=== PATIENT | male | born 1945 | race Caucasian/White ===

== ENCOUNTER 2022-03-10 15:07 | Outpatient (CLI) | payer MEDICARE, SELFPAY ==
--- NOTE | ~2022-03-10 | US_ITS ---
EXAMINATION: US carotid duplex BI EXAM DATE: 03/10/2022 15:48 INDICATION: R42 - Dizziness and giddiness TECHNIQUE: Grayscale, color and pulsed Doppler images of the cervical carotid arteries were obtained . The degree of vessel stenosis is placed in one of the following categories: normal, <50% stenosis, 50-69% stenosis, >=70% stenosis but less than near-occlusion, near-occlusion, or occlusion. Note that percent stenosis relative to normal distal artery lumen diameter is indirectly measured from velocit y measurements as described by Donny, et al. Radiology 2003; 229:340-346. There is no prior study fo r comparison. FINDINGS: RIGHT SIDE: Right common carotid artery peak systolic velocity (PSV in cm/s): 150 Right bulb/internal carotid artery peak systolic velocity (PSV in cm/s): 83 Right internal carotid artery end diastolic velocity (EDV in cm/s): 28 Right ICA/CCA peak systolic ratio: 0.55 Right external carotid artery peak systolic velocity (PSV in cm/s): 83 Right vertebral artery antegrade flow: yes There is mild carotid bulb plaque. Velocity and Doppler waveforms in the common and internal carotid arteries is normal. LEFT SIDE: Left common carotid artery peak systolic velocity (PSV in cm/s): 159 Left bulb/internal carotid artery peak systolic velocity (PSV in cm/s): 67 Left internal carotid artery end diastolic velocity (EDV in cm/s): 22 Left ICA/CCA peak systolic ratio: 0.4 Left external carotid artery peak systolic velocity (PSV in cm/s): 91 Left vertebral artery antegrade flow: yes There is mild carotid bulb plaque. Velocity and Doppler waveforms in the common and internal carotid arteries is normal. IMPRESSION: 1. Less than 50 percent stenosis in the right internal carotid artery. 2. Less than 50 percent stenosis in the left internal carotid artery. Reviewed, dictated and finalized at location B.
== END 2022-03-10 15:08 | disposition home or self-care (01) ==
LOC: ANHIMG 15:08
PROVIDERS: PCP Family Medicine; Visit Provider Physician Assistant
DX: I65.23 Occlusion and stenosis of bilateral carotid arteries (principal)
CPT/HCPCS: 93880

== ENCOUNTER → 2022-04-07 06:57 | Outpatient (CLI) | payer MEDICARE, SELFPAY ==
--- NOTE | ~2022-04-07 | MR_ITS ---
EXAMINATION: MR brain/brain stem wo con DATE: 04/07/2022 07:47 INDICATION: Amnesia. TECHNIQUE: Magnetic resonance imaging (MRI) of the brain and brainstem was performed without intraven ous contrast. Sequences included sagittal and axial T1-weighted SE, axial diffusion-weighted FS SE, a xial T2*-weighted GRE, axial T2-weighted FLAIR Propeller, and axial T2-weighted Propeller. Apparent d iffusion coefficient (ADC) maps were created. COMPARISON: No prior studies for comparison. . FINDINGS: There are small mucous retention cyst in both maxillary sinuses. Generalized atrophy. There are scattered moderate-severe periventricular and subcortical white matter changes, most likely rela dominic to small vessel ischemic disease (microangiopathy). No acute infarction or hemorrhage is identifi ed. No ventriculomegaly or midline shift. Orbits are symmetric without disconjugate gaze. Structures of the posterior fossa are unremarkable. Midline sagittal images demonstrate a normal craniovertebral junction. Corpus callosum intact. IMPRESSION: 1. No acute intracranial abnormality. 2: Chronic age-related findings. Reviewed, dictated and finalized at location A.
== END ==
PROVIDERS: PCP Family Medicine; Visit Provider Family Medicine
DX: R41.3 Other amnesia (principal); G20 Parkinson's disease
CPT/HCPCS: 70551

== ENCOUNTER 2023-08-23 15:47 | Inpatient (IN) | payer MEDICARE, SELFPAY ==
[2023-08-23] VITALS (23 sets, daily range): BP systolic 146–172; BP diastolic 79–97; PULSE 99–111; RESP 14–24; TEMP 37.1; O2SAT 93–99
--- NOTE | ~2023-08-23 | CT_ITS ---
EXAMINATION: CT brain wo con DATE: 08/23/2023 20:21 INDICATION: new ams, covid, hx vasc dementia . TECHNIQUE: Computed tomography (CT) of the head was performed without intravenous contrast. The mA wa s adjusted according to patient size. Iterative reconstruction technique was employed. The dose-lengt h product was 908.00 mGy-cm. COMPARISON: MRI brain 04/07/2022. FINDINGS: Motion limited study. Repeat images attempted which also contain motion. Motion limited slices at the vertex were not really imaged. No acute intracranial hemorrhage or extra-axial fluid collection. No hydrocephalus, mass, or herniation. No acute ischemic infarct. Unremarkable dural venous sinus attenuation. No acute osseous abnormality. Bilateral maxillary and ethmoid mucosal thickening, left mastoid fluid, the remaining aerated spaces are clear. Moderate atrophy and chronic white matter change. Atherosclerotic intracranial calcification. Bilater al lens replacements. IMPRESSION: Motion limited examination. Within that constraint no definite acute intracranial process detected. Reviewed, dictated and finalized at location K. IMPRESSION: Motion limited examination. Within that constraint no definite acute intracrani al process detected.
--- NOTE | ~2023-08-23 | MR_ITS ---
EXAMINATION: MR brain/brain stem wo con DATE: 08/24/2023 17:00 INDICATION: Confusion TECHNIQUE: Magnetic resonance imaging (MRI) of the brain and brainstem was performed without intraven ous contrast. Sequences included sagittal and axial T1-weighted SE, axial diffusion-weighted FS SE, a xial T2*-weighted GRE, axial T2-weighted FLAIR, and axial T2-weighted FSE. Postcontrast axial and cor onal T1-weighted SE was obtained. Apparent diffusion coefficient (ADC) maps were created. COMPARISON: None. FINDINGS: There are no areas of restricted diffusion to suggest acute infarction. No intracranial hemorrhage or abnormal intracranial mass lesion. There are scattered areas of nonspecific increased T2-weighted si gnal intensity in the cerebral white matter, predominantly involving the deep and periventricular whi te matter which is within normal limits for age and likely sequela of chronic small vessel ischemic d isease. There are no intraparenchymal signal abnormalities seen on the other pulse sequences. Symmetr ic prominence of the sulci and ventricles consistent with moderate age-appropriate diffuse cerebral v olume loss. There are no abnormal extra-axial fluid collections. Flow voids are seen in the cerebral arteries on the T2-weighted sequences consistent with their expected patency. Mucosal thickening in t he paranasal sinuses. Changes of bilateral intraocular lens replacement. Visualized orbits and soft tissues are unremarkable. IMPRESSION: 1. No acute intracranial process. 2. Moderate diffuse volume loss and moderate scattered white matter T2 hyperintensity which is within normal limits for age and likely sequela of chronic small vessel ischemic disease. Reviewed, dictated and finalized at location A. IMPRESSION: 1. No acute intracranial process. 2. Moderate diffuse volume loss and moderate scattered white matter T2 hyperint ensity which is within normal limits for age and likely sequela of chronic smal l vessel ischemic disease.
--- NOTE | ~2023-08-23 | XR_ITS ---
EXAMINATION: XR chest 2V Exam Date/Time: 08/23/2023 16:55 CDT HISTORY: cough WITH SHORTNESS OF BREATH X 1 DAY Comparison: 02/14/2018. RESULT: Lines, tubes, and devices: None. Lungs and pleura: Ill-defined patchy bilateral mid and lower lung groundglass opacities. Cardiomediastinal silhouette: Stable. Other: No acute osseous or upper abdominal finding. IMPRESSION: Bilateral mid and lower lung opacities may represent edema or infection. Reviewed, dictated and finalized at location K.
--- NOTE | 2023-08-23 16:33 | ECG_ITS ---
Measurements Intervals [place] Rate: 99 P: 56 PA: 234 QRS: -43 QRSD: 99 T: 33 QT: 337 QTc: 433 Interpretive Statements SINUS RHYTHM WITH FIRST DEGREE AV BLOCK LEFT AXIS DEVIATION PATTERN CONSISTENT WITH PULMONARY DISEASE BORDERLINE ECG NO PREVIOUS ECG AVAILABLE FOR COMPARISON Electronically Signed On 08-23-2023 18:50:37 CDT by Jim Solorzano D.O.
[2023-08-23 16:49] LABS: Basophils Percent Auto 0.4 % (0.2-1.2); Eosinophils Percent Auto 0.4 % (0-4.4); Hematocrit 45.2 % (42.0-52.0); Hemoglobin 15.4 g/dL (14.0-18.0); Immature Granulocyte Absolute 0.03 K/mm3 (0.00-0.031); Immature Granulocyte Percent A 0.6 % (0-0.5); Lymphocytes Absolute Auto 0.56 K/mm3 (0.9-3.2); Lymphocytes Percent Auto 10.5 % (18.3-44.2); Mean Corpuscular HGB Conc 34.1 g/dl (32-36); Mean Corpuscular Hemoglobin 30.2 pg (26-34); Mean Corpuscular Volume 88.6 fl (80-100); Mean Platelet Volume 10.2 fl (7.4-10.4); Monocytes Absolute Auto 0.8 K/mm3 (0.1-0.6); Monocytes Percent Auto 15.3 % (2.6-8.5); Neutrophils Absolute Auto 3.9 K/mm3 (1.3-6.7); Neutrophils Percent Auto 72.8 % (45.5-73.1); Platelet Count Result 165 k/mm3 (150-375); Red Cell Distribution Width 12.6 % (11.5-14.5); White Blood Count 5.3 K/mm3 (4.5-10.0)
[2023-08-23 17:01] LABS: Alanine Aminotransferase 20 U/L (6-50); Albumin Level 4.4 g/dL (3.5-5.1); Alkaline Phosphatase 80 U/L (38-126); Anion Gap 10 mmol/L (8-16); Aspartate Amino Transferase 23 U/L (17-59); Bilirubin,Total 1.3 mg/dL (0.2-1.3); Blood Urea Nitrogen 16 mg/dL (9-20); Carbon Dioxide 26 mmol/L (22-30); Chloride 100 mmol/L (98-107); Estimated CRCL calculation 95 ml/min; Estimated Glomerular Filt Rate > 60; Glucose 122 mg/dL (65-110); Potassium 3.3 mmol/L (3.4-5.0); Sodium 136 mmol/L (137-145)
[2023-08-23 17:37] LABS: Influenza A QL RT-PCR Negative (Negative); Influenza B QL RT-PCR Negative (Negative); SARS-CoV-2 RNA PCR Positive (Negative)
[2023-08-23 18:54] LABS: Appearance Urine Clear (Clear); Bacteria Urine None Seen /hpf; Bilirubin Urine Negative (Negative); Blood Urine 2+ (Negative); Color Urine Yellow (Yellow); Glucose Urine UA Negative (Negative); Ketones Urine 2+ mg/dL (Negative); Leukocyte Esterase Ur Negative LEU/UL (Negative); Nitrate Urine Negative (Negative); Non Pathogenic Casts 0-2; Protein Urine Trace mg/dL (Negative); RBC Urine 21-50 /hpf (0-2); Specific Grav Ur 1.026 (1.001-1.035); Squamous Epithelial Cell Urine None seen /hpf (Few); WBC Urine 0-5 /hpf; pH Urine 5.5 (5.0-9.0)
[2023-08-23 18:55] LABS: Add Urine Microscopic? YES
--- NOTE | 2023-08-23 19:53 | ED.WEAKNESS ---
HPI - Weakness General Chief complaint: Weakness Stated complaint: covid? Time Seen by Provider: 08/23/23 17:30 Source: patient and family Mode of arrival: EMS Limitations: clinical condition and dementia History of Present Illness HPI Narrative: Patient is a 77-year-old male, with PMH of vascular dementia, who presents to the ED with report of weakness. Patient reports he is unsure why he is currently at the hospital. He denies feeling weak or fatigued currently. He denies any pain. Denies chest pain, difficulty breathing, nausea or vomiting, cough or cold symptoms. He notes he recently traveled with his family, but is unsure where. Has no other complaints at this time. I spoke to patient's and daughter in the ED waiting room. They report patient has been increasingly confused. He does have history of vascular dementia, but states he is normally able to hold a conversation and is aware of his surroundings and recent events. They state upon traveling back from [place] yesterday, patient became very weak. They state he required a wheelchair to get him through the airport which is abnormal for him. Today, patient went to run an errand but patient became increasingly confused while driving home, was unable to park correctly into the garage, and sat for prolonged period in the set key driver seat without knowing why. They attempted to help him out of the car, but were unable to due to him being so weak. He was unable to stand unassisted. EMS was then called. Related Data Home Medications Medication Instructions Recorded Confirmed coenzyme [id number] E 100 mg-100 1 cap PO .QD 05/03/20 08/24/23 unit capsule omega-3 fatty acids 1,000 mg 1,000 mg PO DAILY 05/03/20 08/24/23 capsule (Fish Oil Concentrate) hydrochlorothiazide 25 mg tablet 25 mg PO DAILY 08/24/23 08/24/23 lisinopril 40 mg tablet 40 mg PO DAILY 08/24/23 08/24/23 omeprazole 20 mg capsule,delayed 20 mg PO DAILY 08/24/23 08/24/23 release Allergies Allergy/AdvReac Type Severity Reaction Status Date / Time No Known Allergies Allergy Verified 08/23/23 15:56 Review of Systems Review of Systems: ROS unobtainable: Yes unobtainable due to mental status PMFSH Past Medical History Medical History (Updated 08/24/23 @ 01:55 by Maris Prescott PA-C) Essential (primary) hypertension Gastro-esophageal reflux disease without esophagitis Mixed hyperlipidemia Type 2 diabetes mellitus without complications Vascular dementia Family History Family History Mother Diabetes mellitus Father Family history of cardiovascular disease, Onset Age: 57 FH myocardial infarction male first degree age known, Onset Age: 57 Social History Social History Smoking status: Former smoker Alcohol intake: current Drinks per week: 10 Substance use: never Lack of Transportation: No Lack of Food: Never True Current Housing: I Have Housing Concerned About Future Housing: No Difficulty Paying Gas/Electric Bills: No Difficulty Paying for Meds: No Currently Unemployed: No Education: Associate Degree Difficulty w/ Childcare or Family Care: No Spiritual care concerns: No Exam Narrative: GENERAL: Elderly, well-nourished, non-toxic, in no acute distress. HEAD: Normocephalic, atraumatic. NECK: Supple. No adenopathy, no masses. RESPIRATORY: Airway patent, respirations nonlabored. Very faint crackles in bases bilaterally, no significant focal lung sounds. CARDIOVASCULAR: Borderline tachycardic with regular rhythm without murmurs, rubs, or gallops. Peripheral pulses 2+ and equal bilaterally. ABDOMINAL: Soft, nontender, nondistended, no hepatosplenomegaly. Normoactive BS. MUSCULOSKELETAL: Moves all extremities. Strength/ROM intact without gross deformities. SKIN: Warm, dry, normal color. No rashes. NEURO: A&O X2, unsure of year, tho
[2023-08-23 20:26] LABS: Lactic Acid Reflex 1.6 mmol/L (0.7-2.0)
[2023-08-23 20:29] LABS: CRP 3.5 mg/dL (<1.0)
[2023-08-23] MEDS: POTASSIUM CHLORIDE 20 MEQ ER TABLET 40 MEQ PO (20:29)
[2023-08-23] MEDS: SODIUM CHLORIDE 0.9% IV 1,000 ML 999 ML IV CONT (20:29)
[2023-08-23 20:39] LABS: NT Pro B Type Natriuretic Pept 411 pg/mL (19.9-100); Troponin I < 0.012 ng/mL (0.000-0.034)
[2023-08-23 21:04] LABS: Procalcitonin 0.1 ng/mL
[2023-08-23 23:13] LABS: D Dimer 0.33 ug/mL (<0.48)
[2023-08-24] VITALS (14 sets, daily range): BP systolic 152–168; BP diastolic 87–97; PULSE 88–100; RESP 16–18; TEMP 36.4–38.4; O2SAT 95–98
--- NOTE | 2023-08-24 00:14 | ADMGEN ---
This patient, Ritesh Culver, was admitted to Medical Room 255-. Patient/family oriented to hospital policies and general routines including ID bracelet, bed and alarms, visiting hours, pain management, procedures, bathroom and other care routines, personal items, smoking policy, room service/diet, and visiting hours. Information on how to activate the Rapid Response Team has been discussed. Patient/Family are encouraged to report perceived risks to care and to ask questions if they do not understand what they are told or what they should do.
[2023-08-24] MEDS: SODIUM CHLORIDE 0.9% IV 1,000 ML 100 ML IV CONT ×2 (00:19→11:44)
[2023-08-24 06:20] LABS: Hematocrit 44.1 % (42.0-52.0); Hemoglobin 15.2 g/dL (14.0-18.0); Mean Corpuscular HGB Conc 34.5 g/dl (32-36); Mean Corpuscular Hemoglobin 30.6 pg (26-34); Mean Corpuscular Volume 88.7 fl (80-100); Mean Platelet Volume 9.5 fl (7.4-10.4); Platelet Count Result 141 k/mm3 (150-375); Red Blood Count 4.97 M/mm3 (4.6-6.20); Red Cell Distribution Width 12.3 % (11.5-14.5); White Blood Count 3.9 K/mm3 (4.5-10.0)
[2023-08-24 06:40] LABS: Anion Gap 9 mmol/L (8-16); Blood Urea Nitrogen 11 mg/dL (9-20); Calcium 8.3 mg/dL (8.4-10.2); Carbon Dioxide 26 mmol/L (22-30); Chloride 100 mmol/L (98-107); Estimated CRCL calculation 109 ml/min; Estimated Glomerular Filt Rate > 60; Glucose 114 mg/dL (65-110); Potassium 3.3 mmol/L (3.4-5.0); Sodium 135 mmol/L (137-145)
[2023-08-24 08:08] LABS: Glucose Point of Care 120 mg/dl (65-105)
[2023-08-24] MEDS: lisinopriL 20 MG TABLET 40 MG PO (08:41)
[2023-08-24] MEDS: OMEGA 3 POLYUNSAT FATTY ACIDS 1 GM CAP PO (08:42)
[2023-08-24] MEDS: PANTOPRAZOLE 40 MG TABLET PO (08:43)
[2023-08-24] MEDS: ROSUVASTATIN 10 MG TABLET PO (08:43)
[2023-08-24 12:08] LABS: Glucose Point of Care 117 mg/dl (65-105)
--- NOTE | 2023-08-24 15:27 | PM.IMHP ---
H&P: HPI History of Present Illness Date/Time: 08/24/23 15:27 Chief Complaint: Altered mental status Narrative: This is a 6-year-old male with past medical history of vascular dementia presented with weakness. Patient is confused and naked on his bed. He denies any new complaints no shortness of breath chest pain nausea vomiting cough. He recently traveled this family for medical record the has been reported to be increasingly confused will recently. Needed a wheelchair to get him through the airport which is not normal for him. Patient went to run an errand but became increasingly confused while driving home. EMS was then called. He has past medical history of hypertension GERD hyperlipidemia type 2 diabetes and vascular dementia. Is admitted in the setting for further evaluation Review of Systems Review of Systems: ROS unobtainable: Yes unobtainable due to medical condition (Confused) [facility] Past Medical History Medical History (Updated 08/24/23 @ 01:55 by Maris Prescott PA-C) Essential (primary) hypertension Gastro-esophageal reflux disease without esophagitis Mixed hyperlipidemia Type 2 diabetes mellitus without complications Vascular dementia Family History Family History Mother Diabetes mellitus Father Family history of cardiovascular disease, Onset Age: 57 FH myocardial infarction male first degree age known, Onset Age: 57 Social History Social History Smoking status: Former smoker Alcohol intake: current Drinks per week: 10 Substance use: never Lack of Transportation: No Lack of Food: Never True Current Housing: I Have Housing Concerned About Future Housing: No Difficulty Paying Gas/Electric Bills: No Difficulty Paying for Meds: No Currently Unemployed: No Education: Associate Degree Difficulty w/ Childcare or Family Care: No Spiritual care concerns: No Meds Home Medications and Allergies Home Medications Medication Instructions Recorded Confirmed Type coenzyme [id number]-xoppixc E 100 mg-100 1 cap PO .QD 05/03/20 08/24/23 History unit capsule omega-3 fatty acids 1,000 mg 1,000 mg PO DAILY 05/03/20 08/24/23 History capsule (Fish Oil Concentrate) rosuvastatin 10 mg tablet (Crestor) 10 mg PO DAILY #90 tabs 06/25/23 08/24/23 Rx hydrochlorothiazide 25 mg tablet 25 mg PO DAILY 08/24/23 08/24/23 History lisinopril 40 mg tablet 40 mg PO DAILY 08/24/23 08/24/23 History omeprazole 20 mg capsule,delayed 20 mg PO DAILY 08/24/23 08/24/23 History release Allergies Allergy/AdvReac Type Severity Reaction Status Date / Time No Known Allergies Allergy Verified 08/23/23 15:56 Vital Signs Vital Signs - 24 hr 08/23/23 15:46 08/23/23 15:57 08/23/23 16:13 Temperature 98.7 F Pulse Rate 105 H 103 H 101 H Respiratory Rate 22 H 22 H Blood Pressure 166/95 H Pulse Oximetry 95 96 Oxygen Delivery Room Air 08/23/23 16:15 08/23/23 16:16 08/23/23 16:31 Temperature Pulse Rate 100 101 H 111 H Respiratory Rate 22 H 24 H 19 Blood Pressure 164/89 H 164/89 H Pulse Oximetry 96 96 96 Oxygen Delivery 08/23/23 16:47 08/23/23 17:04 08/23/23 17:15 Temperature Pulse Rate 100 100 101 H Respiratory Rate 21 H 14 20 Blood Pressure Pulse Oximetry 96 95 95 Oxygen Delivery 08/23/23 17:32 08/23/23 18:08 08/23/23 17:29 Temperature Pulse Rate 100 99 Respiratory Rate 20 20 Blood Pressure 165/97 H 163/92 H Pulse Oximetry 97 95 99 Oxygen Delivery Room Air 08/23/23 17:30 08/23/23 17:31 08/23/23 17:45 Temperature Pulse Rate 99 100 101 H Respiratory Rate 20 22 H 18 Blood Pressure 165/97 H Pulse Oximetry 95 97 96 Oxygen Delivery 08/23/23 17:46 08/23/23 18:04 08/23/23 19:04 Temperature Pulse Rate 100 100 104 H Respiratory Rate 20 22 H 20 Blood Pressure 165/97 H 159/88 H Pulse Oximetry 95 95
[2023-08-24 17:23] LABS: Glucose Point of Care 122 mg/dl (65-105)
[2023-08-24] MEDS: POTASSIUM CHLORIDE 20 MEQ ER TABLET 40 MEQ PO (17:27)
[2023-08-24] MEDS: ACETAMINOPHEN 325 MG TABLET 650 MG PO (21:32)
[2023-08-24] MEDS: SODIUM CHLORIDE 0.9% IV 1,000 ML 75 ML IV CONT (22:55)
[2023-08-25] VITALS (16 sets, daily range): BP systolic 136–171; BP diastolic 86–99; PULSE 78–103; RESP 12–18; TEMP 36.3–38.6; O2SAT 93–98
[2023-08-25] MEDS: ACETAMINOPHEN 325 MG TABLET PO (00:12)
--- NOTE | 2023-08-25 01:39 | PC.NURSE ---
Patient continually removes telemetry leads despite repeated reorientation and education. Patient has a history of vascular dementia.
[2023-08-25 06:42] LABS: Basophils Percent Auto 0.3 % (0.2-1.2); Eosinophils Percent Auto 0.3 % (0-4.4); Hematocrit 46.4 % (42.0-52.0); Hemoglobin 16.2 g/dL (14.0-18.0); Immature Granulocyte Absolute 0.02 K/mm3 (0.00-0.031); Immature Granulocyte Percent A 0.6 % (0-0.5); Lymphocytes Percent Auto 23.9 % (18.3-44.2); Mean Corpuscular HGB Conc 34.9 g/dl (32-36); Mean Corpuscular Hemoglobin 30.5 pg (26-34); Mean Corpuscular Volume 87.2 fl (80-100); Mean Platelet Volume 9.6 fl (7.4-10.4); Monocytes Absolute Auto 0.5 K/mm3 (0.1-0.6); Monocytes Percent Auto 14.6 % (2.6-8.5); Neutrophils Percent Auto 60.3 % (45.5-73.1); Platelet Count Result 132 k/mm3 (150-375); Red Blood Count 5.32 M/mm3 (4.6-6.20); Red Cell Distribution Width 12.2 % (11.5-14.5); White Blood Count 3.4 K/mm3 (4.5-10.0)
[2023-08-25 06:56] LABS: Alanine Aminotransferase 22 U/L (6-50); Alkaline Phosphatase 72 U/L (38-126); Anion Gap 9 mmol/L (8-16); Aspartate Amino Transferase 32 U/L (17-59); Bilirubin,Total 1.3 mg/dL (0.2-1.3); Blood Urea Nitrogen 10 mg/dL (9-20); CRP 4.2 mg/dL (<1.0); Calcium 8.3 mg/dL (8.4-10.2); Carbon Dioxide 25 mmol/L (22-30); Chloride 98 mmol/L (98-107); Creatine Kinase 136 U/L (55-170); Estimated CRCL calculation 128 ml/min; Estimated Glomerular Filt Rate > 60; Glucose 103 mg/dL (65-110); Magnesium 1.9 mg/dL (1.6-2.3); Potassium 3.2 mmol/L (3.4-5.0); Sodium 132 mmol/L (137-145)
--- NOTE | 2023-08-25 08:31 | PM.IMPN ---
Progress Note: A&P Assessment and Plan (1) Essential (primary) hypertension: Code(s): I10 - Essential (primary) hypertension Status: Acute (2) Gastro-esophageal reflux disease without esophagitis: Code(s): K21.9 - Gastro-esophageal reflux disease without esophagitis Status: Acute (3) Mixed hyperlipidemia: Code(s): E78.2 - Mixed hyperlipidemia Status: Acute (4) Type 2 diabetes mellitus without complications: Qualifiers: Diabetes mellitus fdc insulin use: without intermediate card tender use Qualified Code(s): E11.9 - Type 2 diabetes mellitus without complications Code(s): E11.9 - Type 2 diabetes mellitus without complications Status: Acute (5) Vascular dementia: Code(s): F01.50 - Vascular dementia, unspecified severity, without behavioral disturbance, psychotic disturbance, mood disturbance, and anxiety Status: Acute (6) COVID-19: Code(s): U07.1 - COVID-19 Status: Acute (7) Generalized weakness: Code(s): R53.1 - Weakness Status: Acute (8) Unable to ambulate: Code(s): R26.2 - Difficulty in walking, not elsewhere classified Status: Acute (9) Acute confusion: Code(s): R41.0 - Disorientation, unspecified Status: Acute Plan Acute metabolic encephalopathy and general weakness Patient is a 69-year-old male presents to the ED with generalized weakness increasing confusion. Patient also had urinated on himself. Laboratory workup fairly unremarkable mildly low potassium urine with 2+ ketones on blood with no evidence of infection. IV fluids started. EKG without ischemic changes. Troponin negative. BNP is 411. CT brain with no abnormality. cOVID test came back positive which is likely the etiology. brain MRI: 1. No acute intracranial process. 2. Moderate diffuse volume loss and moderate scattered white matter T2 hyperintensity which is within normal limits for age and likely sequela of chronic small vessel ischemic disease. Neurology consult. COVID pneumonia and possible superimposed bacterial pneumonia Chest x-ray with possible infection versus edema. not on O2 Patient has a leukopenia and fever in past 2 days Lactic acid normal procalcitonin 0.1, Start doxycycline p.o. and ceftriaxone IV Follow-up blood culture Mildly tachycardic on presentation hypertension continue lisinopril hydrochlorothiazide on hold. Subjective Date/time seen: 08/25/23 08:31 Interval history: Patient has fevers in past 2 days, cbc shows leukopenia. Exam Narrative: GENERAL: Elderly, well-nourished, non-toxic, in no acute distress. Confused, completely naked in bed HEAD: Normocephalic, atraumatic. NECK: Supple. No adenopathy, no masses. RESPIRATORY: Airway patent, respirations nonlabored. CARDIOVASCULAR: Regular rate regular rhythm without murmurs, rubs, or gallops. Peripheral pulses 2+ and equal bilaterally. ABDOMINAL: Soft, nontender, nondistended, no hepatosplenomegaly. Normoactive BS. MUSCULOSKELETAL: Moves all extremities. Strength/ROM intact without gross deformities. SKIN: Warm, dry, normal color. No rashes. NEURO: A&O X2, awake and conversant however confused moving all extremities. PSYCHIATRIC: Confused Objective Data Vital Signs Vital Signs: Vital Signs - 24 hr 08/24/23 12:01 08/24/23 13:25 08/24/23 14:00 Temperature 97.6 F Pulse Rate 88 89 Respiratory Rate 16 Blood Pressure 165/97 H Pulse Oximetry 98 Oxygen Delivery Room Air 08/24/23 16:03 08/24/23 20:45 08/24/23 21:32 Temperature 100.4 F H 100.4 F H Pulse Rate 90 89 Respiratory Rate 18 Blood Pressure 168/88 H Pulse Oximetry 95 Oxygen Delivery 08/24/23 20:00 08/24/23 22:30 08/24/23 22:32 Temperature 101.2 F H 101.2 F H Pulse Rate 90 Respiratory Rate Blood Pressure Pulse Oximetry Oxygen Delivery 08/24/23 23:13 08/25/23 00:12 08/25/23 00:04 Temperature 100.7 F H 100.7
[2023-08-25] MEDS: DOXYCYCLINE HYCLATE 100 MG TABLET PO ×2 (09:00→20:55)
[2023-08-25] MEDS: cefTRIAXone 2 GM/NS 100 ML 2 GM/100 ML BAG IVPB (09:00)
[2023-08-25] MEDS: PANTOPRAZOLE 40 MG TABLET PO (09:01)
[2023-08-25] MEDS: lisinopriL 20 MG TABLET 40 MG PO (09:01)
[2023-08-25] MEDS: OMEGA 3 POLYUNSAT FATTY ACIDS 1 GM CAP PO (09:01)
[2023-08-25] MEDS: ROSUVASTATIN 10 MG TABLET PO (09:01)
--- NOTE | 2023-08-25 12:40 | WPDNEURCNPN ---
Consult date: 08/25/23 HPI: Ritesh Culver is a 77 year old male admitted to the hospital through the emergency room for the ongoing diagnosis of vascular dementia in addition to the history of generalized weakness, his medication as an outpatient included only lisinopril 40 mg daily omeprazole 20 mg capsule daily he is not allergic to any medications, he has ongoing history of GERD with type 2 diabetes mellitus without complication and Mello killer dementia is a former smoker by history with currently alcohol intake of 10 drinks per wee. evaluation up until include the routine blood studies which revealed only mild hyponatremia and hypokalemia and serology negative for the influenza a and B though it was positive on 08/23 for sars. MRI of the brain in March of [address] scan of the head at this particular time is negative, repeat MRI only documented moderate diffuse volume loss. [facility] Past Medical History Medical History (Updated 08/24/23 @ 01:55 by Maris Prescott PA-C) Essential (primary) hypertension Gastro-esophageal reflux disease without esophagitis Mixed hyperlipidemia Type 2 diabetes mellitus without complications Vascular dementia Family History Family History Mother Diabetes mellitus Father Family history of cardiovascular disease, Onset Age: 57 FH myocardial infarction male first degree age known, Onset Age: 57 Social History Social History Smoking status: Former smoker Alcohol intake: current Drinks per week: 10 Substance use: never Lack of Transportation: No Lack of Food: Never True Current Housing: I Have Housing Concerned About Future Housing: No Difficulty Paying Gas/Electric Bills: No Difficulty Paying for Meds: No Currently Unemployed: No Education: Associate Degree Difficulty w/ Childcare or Family Care: No Spiritual care concerns: No Meds Home Medications and Allergies Home Medications Medication Instructions Recorded Confirmed Type coenzyme P33-sthtgwx E 100 mg-100 1 cap PO .QD 05/03/20 08/24/23 History unit capsule omega-3 fatty acids 1,000 mg 1,000 mg PO DAILY 05/03/20 08/24/23 History capsule (Fish Oil Concentrate) rosuvastatin 10 mg tablet (Crestor) 10 mg PO DAILY #90 tabs 06/25/23 08/24/23 Rx hydrochlorothiazide 25 mg tablet 25 mg PO DAILY 08/24/23 08/24/23 History lisinopril 40 mg tablet 40 mg PO DAILY 08/24/23 08/24/23 History omeprazole 20 mg capsule,delayed 20 mg PO DAILY 08/24/23 08/24/23 History release Allergies Allergy/AdvReac Type Severity Reaction Status Date / Time No Known Allergies Allergy Verified 08/23/23 15:56 Vital Signs Vital Signs - 24 hr 08/24/23 13:25 08/24/23 14:00 08/24/23 16:03 Temperature 36.4 C Pulse Rate 89 90 Respiratory Rate 16 Blood Pressure 165/97 H Pulse Oximetry 98 Oxygen Delivery Room Air 08/24/23 20:45 08/24/23 21:32 08/24/23 20:00 Temperature 38.0 C H 38.0 C H Pulse Rate 89 90 Respiratory Rate 18 Blood Pressure 168/88 H Pulse Oximetry 95 Oxygen Delivery 08/24/23 22:30 08/24/23 22:32 08/24/23 23:13 Temperature 38.4 C H 38.4 C H 38.2 C H Pulse Rate Respiratory Rate Blood Pressure Pulse Oximetry Oxygen Delivery 08/25/23 00:12 08/25/23 00:04 08/25/23 01:13 Temperature 38.2 C H 37.2 C Pulse Rate 87 Respiratory Rate Blood Pressure Pulse Oximetry Oxygen Delivery 08/25/23 01:12 08/25/23 04:00 08/25/23 05:20 Temperature 37.1 C 36.8 C Pulse Rate 78 81 Respiratory Rate 18 Blood Pressure 164/91 H Pulse Oximetry 98 Oxygen Delivery Results Labs 08/25/23 06:03 08/25/23 06:03 Labs: Short CBC 08/25/23 Range/Units 06:03 WBC 3.4 L (4.5-10.0) K/mm3 Hgb 16.2 (14.0-18.0) g/dL Hct 46.4 (42.0-52.0) % Plt Count 132 L (150-375) k/m
--- NOTE | 2023-08-25 14:19 | WPDNEURCNPN ---
Assessment and Plan Assessment and plan (1) Essential (primary) hypertension: Code(s): I10 - Essential (primary) hypertension Status: Acute (2) Type 2 diabetes mellitus without complications: Qualifiers: Diabetes mellitus custodial insulin use: without custodial use Qualified Code(s): E11.9 - Type 2 diabetes mellitus without complications Code(s): E11.9 - Type 2 diabetes mellitus without complications Status: Acute (3) Vascular dementia: Code(s): F01.50 - Vascular dementia, unspecified severity, without behavioral disturbance, psychotic disturbance, mood disturbance, and anxiety Status: Acute (4) Generalized weakness: Code(s): R53.1 - Weakness Status: Acute (5) COVID-19: Code(s): U07.1 - COVID-19 Status: Acute Plan Generalized weakness with without evidence of any focal damage in CT scan of the brain but covid came positive could be contributing the complaints as outlined above in addition to the underlying vascular dementia, diabetes mellitus, and treatment will be continued as such a routine EEG can be obtained Consult date: 08/25/23 HPI: Ritesh Culver is a 77 year old maleAdmitted to the hospital for the complaints of generalized weakness in addition to the ongoing diagnosis of vascular dementia he did not complain of any specific pain he was unable to recall where he has recently traveled though he did travel with his family as per the family the patient has been increasingly confused normally is able to hold the conversation and aware of the surroundings and recent events but ever since he returned from [place] became very weak and increasingly confused on the day of visit to the ER he went to run he remained but became increasingly confused and was unable to park into the grass as and sat in the car for longer duration not knowing exactly what he was doing. His outpatient medications included lisinopril 40 mg daily hydrochlorothiazide 25 mg daily and omeprazole 20 mg daily, he is not known to be allergic to any medication and he has history of hypertension, GERD, type 2 diabetes mellitus, and vascular dementia as mentioned above, is a former smoker, currently alcohol drinker 10 drinks per week, but no substance use on initial examination in the emergency room there were no acute neurological signs or deficit his vital signs were stable except blood pressure 166/95 routine CBC was normal basic metabolic panel was mildly abnormal sodium 136 potassium 3.3 he was negative for influenza a and B but positive for sars,, initial chest x-ray was with bilateral lung opacities attributed to edema or infection, still CT scan of the head negative for the bleed, EKG without any atrial fibrillation, MRI revealed no space-occupying lesion except the diffuse volume loss and scattered white-matter disease, has had MRI last year as well and there was no significant change Review of Systems Review of Systems: All systems reviewed & are unremarkable except as noted in HPI and below PMFSH Past Medical History Medical History (Updated 08/24/23 @ 01:55 by Maris Prescott PA-C) Essential (primary) hypertension Gastro-esophageal reflux disease without esophagitis Mixed hyperlipidemia Type 2 diabetes mellitus without complications Vascular dementia Family History Family History Mother Diabetes mellitus Father Family history of cardiovascular disease, Onset Age: 57 FH myocardial infarction male first degree age known, Onset Age: 57 Social History Social History Smoking status: Former smoker Alcohol intake: current Drinks per week: 10 Substance use: never Lack of Transportation: No Lack of Food: Never True Current Housing: I Have Housing Concerned About Future Housing: No Difficulty Paying Gas/Electric Bills: No Difficulty Pay
[2023-08-25] MEDS: ACETAMINOPHEN 325 MG TABLET 650 MG PO (20:55)
[2023-08-26] VITALS (10 sets, daily range): BP systolic 132–172; BP diastolic 76–91; PULSE 78–97; RESP 16–20; TEMP 36.6–37.1; O2SAT 97–98
[2023-08-26] MEDS: SODIUM CHLORIDE 0.9% IV 1,000 ML 75 ML IV CONT ×2 (07:32→21:00)
--- NOTE | 2023-08-26 08:20 | PM.IMPN ---
Progress Note: A&P Assessment and Plan (1) Essential (primary) hypertension: Code(s): I10 - Essential (primary) hypertension Status: Acute (2) Gastro-esophageal reflux disease without esophagitis: Code(s): K21.9 - Gastro-esophageal reflux disease without esophagitis Status: Acute (3) Mixed hyperlipidemia: Code(s): E78.2 - Mixed hyperlipidemia Status: Acute (4) Type 2 diabetes mellitus without complications: Qualifiers: Diabetes mellitus longterm insulin use: without longterm use Qualified Code(s): E11.9 - Type 2 diabetes mellitus without complications Code(s): E11.9 - Type 2 diabetes mellitus without complications Status: Acute (5) Vascular dementia: Code(s): F01.50 - Vascular dementia, unspecified severity, without behavioral disturbance, psychotic disturbance, mood disturbance, and anxiety Status: Acute (6) COVID-19: Code(s): U07.1 - COVID-19 Status: Acute (7) Generalized weakness: Code(s): R53.1 - Weakness Status: Acute (8) Unable to ambulate: Code(s): R26.2 - Difficulty in walking, not elsewhere classified Status: Acute (9) Acute confusion: Code(s): R41.0 - Disorientation, unspecified Status: Acute Plan Acute metabolic encephalopathy and general weakness Patient is a 69-year-old male presents to the ED with generalized weakness increasing confusion. Patient also had urinated on himself. Laboratory workup fairly unremarkable mildly low potassium urine with 2+ ketones on blood with no evidence of infection. IV fluids started. EKG without ischemic changes. Troponin negative. BNP is 411. CT brain with no abnormality. cOVID test came back positive which is likely the etiology. brain MRI: 1. No acute intracranial process. 2. Moderate diffuse volume loss and moderate scattered white matter T2 hyperintensity which is within normal limits for age and likely sequela of chronic small vessel ischemic disease. Neurology consult. Appreciate recommendation COVID pneumonia and possible superimposed bacterial pneumonia Chest x-ray with possible infection versus edema. not on O2 Patient has leukopenia and fever since admission Lactic acid normal procalcitonin 0.1, Start doxycycline p.o. and ceftriaxone IV, finished remdesivir a 5 days course Follow-up blood culture, report pending Still has low-grade fever Mildly tachycardic on presentation hypertension continue lisinopril hydrochlorothiazide on hold. Subjective Date/time seen: 08/26/23 08:20 Interval history: Patient has low-grade fever 99.7 during the night, blood culture pending patient is mentally clear Exam Narrative: GENERAL: Elderly, well-nourished, non-toxic, in no acute distress. Confused, completely naked in bed HEAD: Normocephalic, atraumatic. NECK: Supple. No adenopathy, no masses. RESPIRATORY: Airway patent, respirations nonlabored. CARDIOVASCULAR: Regular rate regular rhythm without murmurs, rubs, or gallops. Peripheral pulses 2+ and equal bilaterally. ABDOMINAL: Soft, nontender, nondistended, no hepatosplenomegaly. Normoactive BS. MUSCULOSKELETAL: Moves all extremities. Strength/ROM intact without gross deformities. SKIN: Warm, dry, normal color. No rashes. NEURO: A&O X2, awake and conversant however confused moving all extremities. PSYCHIATRIC: Confused Objective Data Vital Signs Vital Signs: Vital Signs - 24 hr 08/25/23 14:15 08/25/23 12:00 08/25/23 16:00 Temperature 97.3 F L Pulse Rate 93 103 H 89 Respiratory Rate 12 Blood Pressure 136/86 Pulse Oximetry 93 Oxygen Delivery 08/25/23 20:27 08/25/23 20:55 08/25/23 20:00 Temperature 101.1 F H 101.1 F H Pulse Rate 84 Respiratory Rate 18 Blood Pressure 171/99 H Pulse Oximetry 97 Oxygen Delivery Room Air 08/25/23 21:54 08/25/23 22:50 08/25/23 23:44 Temperature 101.5 F H 99.7 F H 99.4 F Pulse Rate Respira
[2023-08-26 08:41] LABS: Basophils Percent Auto 0.3 % (0.2-1.2); Hematocrit 45.9 % (42.0-52.0); Hemoglobin 16.2 g/dL (14.0-18.0); Immature Granulocyte Absolute 0.01 K/mm3 (0.00-0.031); Immature Granulocyte Percent A 0.3 % (0-0.5); Lymphocytes Absolute Auto 0.58 K/mm3 (0.9-3.2); Lymphocytes Percent Auto 16.3 % (18.3-44.2); Mean Corpuscular HGB Conc 35.3 g/dl (32-36); Mean Corpuscular Hemoglobin 30.2 pg (26-34); Mean Corpuscular Volume 85.6 fl (80-100); Mean Platelet Volume 9.4 fl (7.4-10.4); Monocytes Absolute Auto 0.5 K/mm3 (0.1-0.6); Monocytes Percent Auto 14.6 % (2.6-8.5); Neutrophils Absolute Auto 2.4 K/mm3 (1.3-6.7); Neutrophils Percent Auto 68.5 % (45.5-73.1); Platelet Count Result 131 k/mm3 (150-375); Red Blood Count 5.36 M/mm3 (4.6-6.20); White Blood Count 3.6 K/mm3 (4.5-10.0)
[2023-08-26 08:50] LABS: Anion Gap 4 mmol/L (8-16); Blood Urea Nitrogen 10 mg/dL (9-20); Calcium 8.1 mg/dL (8.4-10.2); Carbon Dioxide 31 mmol/L (22-30); Chloride 95 mmol/L (98-107); Estimated CRCL calculation 109 ml/min; Estimated Glomerular Filt Rate > 60; Glucose 116 mg/dL (65-110); Sodium 130 mmol/L (137-145)
[2023-08-26] MEDS: cefTRIAXone 2 GM/NS 100 ML 2 GM/100 ML BAG IVPB (09:41)
[2023-08-26] MEDS: OMEGA 3 POLYUNSAT FATTY ACIDS 1 GM CAP PO (09:43)
[2023-08-26] MEDS: PANTOPRAZOLE 40 MG TABLET PO (09:43)
[2023-08-26] MEDS: DOXYCYCLINE HYCLATE 100 MG TABLET PO ×2 (09:43→20:56)
[2023-08-26] MEDS: lisinopriL 20 MG TABLET 40 MG PO (09:43)
[2023-08-26] MEDS: ROSUVASTATIN 10 MG TABLET PO (09:44)
--- NOTE | 2023-08-26 11:48 | PCPTNOTE ---
Attempted to see patient for PT, however patient was getting an EEG in room and unable to be seen for PT.
[2023-08-27] VITALS (9 sets, daily range): BP systolic 152–159; BP diastolic 73–87; PULSE 68–83; RESP 16–18; TEMP 36.3–36.9; O2SAT 98–100
--- NOTE | 2023-08-27 05:44 | PC.NURSE ---
I reviewed the License Pending RN's documentation and agree with the findings.
[2023-08-27 06:12] LABS: Basophils Percent Auto 0.3 % (0.2-1.2); Eosinophils Percent Auto 0.9 % (0-4.4); Hematocrit 43.2 % (42.0-52.0); Hemoglobin 15.6 g/dL (14.0-18.0); Immature Granulocyte Absolute 0.02 K/mm3 (0.00-0.031); Immature Granulocyte Percent A 0.6 % (0-0.5); Lymphocytes Absolute Auto 0.77 K/mm3 (0.9-3.2); Lymphocytes Percent Auto 22.9 % (18.3-44.2); Mean Corpuscular HGB Conc 36.1 g/dl (32-36); Mean Corpuscular Hemoglobin 30.4 pg (26-34); Mean Corpuscular Volume 84.2 fl (80-100); Mean Platelet Volume 9.5 fl (7.4-10.4); Monocytes Absolute Auto 0.5 K/mm3 (0.1-0.6); Monocytes Percent Auto 14.9 % (2.6-8.5); Neutrophils Percent Auto 60.4 % (45.5-73.1); Platelet Count Result 123 k/mm3 (150-375); Red Blood Count 5.13 M/mm3 (4.6-6.20); Red Cell Distribution Width 11.9 % (11.5-14.5); White Blood Count 3.4 K/mm3 (4.5-10.0)
[2023-08-27 06:21] LABS: Anion Gap 6 mmol/L (8-16); Blood Urea Nitrogen 9 mg/dL (9-20); Calcium 8.1 mg/dL (8.4-10.2); Carbon Dioxide 29 mmol/L (22-30); Chloride 96 mmol/L (98-107); Estimated CRCL calculation 128 ml/min; Estimated Glomerular Filt Rate > 60; Glucose 106 mg/dL (65-110); Potassium 2.8 mmol/L (3.4-5.0); Sodium 131 mmol/L (137-145)
[2023-08-27] MEDS: POTASSIUM CHLORIDE 20 MEQ ER TABLET 40 MEQ PO (06:52)
--- NOTE | 2023-08-27 08:05 | PM.IMPN ---
Progress Note: A&P Assessment and Plan (1) Essential (primary) hypertension: Code(s): I10 - Essential (primary) hypertension Status: Acute (2) Gastro-esophageal reflux disease without esophagitis: Code(s): K21.9 - Gastro-esophageal reflux disease without esophagitis Status: Acute (3) Mixed hyperlipidemia: Code(s): E78.2 - Mixed hyperlipidemia Status: Acute (4) Type 2 diabetes mellitus without complications: Qualifiers: Diabetes mellitus correction insulin use: without correction use Qualified Code(s): E11.9 - Type 2 diabetes mellitus without complications Code(s): E11.9 - Type 2 diabetes mellitus without complications Status: Acute (5) Vascular dementia: Code(s): F01.50 - Vascular dementia, unspecified severity, without behavioral disturbance, psychotic disturbance, mood disturbance, and anxiety Status: Acute (6) COVID-19: Code(s): U07.1 - COVID-19 Status: Acute (7) Generalized weakness: Code(s): R53.1 - Weakness Status: Acute (8) Unable to ambulate: Code(s): R26.2 - Difficulty in walking, not elsewhere classified Status: Acute (9) Acute confusion: Code(s): R41.0 - Disorientation, unspecified Status: Acute Plan Acute metabolic encephalopathy and general weakness Patient is a 69-year-old male presents to the ED with generalized weakness increasing confusion. Patient also had urinated on himself. Laboratory workup fairly unremarkable mildly low potassium urine with 2+ ketones on blood with no evidence of infection. IV fluids started. EKG without ischemic changes. Troponin negative. BNP is 411. CT brain with no abnormality. cOVID test came back positive which is likely the etiology. brain MRI: 1. No acute intracranial process. 2. Moderate diffuse volume loss and moderate scattered white matter T2 hyperintensity which is within normal limits for age and likely sequela of chronic small vessel ischemic disease. Neurology consult. Appreciate recommendation COVID pneumonia and possible superimposed bacterial pneumonia Chest x-ray with possible infection versus edema. not on O2 Patient has leukopenia and fever since admission Lactic acid normal procalcitonin 0.1, Start doxycycline p.o. and ceftriaxone IV, finished remdesivir a 5 days course Follow-up blood culture, report pending No fever over the night, white blood cell is trending down possible to do infection Hyponatremia, hypokalemia Sodium 131, potassium 2.8 Repeated with potassium chloride 40 mg b.i.d. p.o. and sodium chloride po Mildly tachycardic on presentation hypertension continue lisinopril hydrochlorothiazide on hold. Subjective Date/time seen: 08/27/23 08:05 Interval history: No fever over the night, patient feeling better, Patient denies chest pain, shortness of breath wbc persists Exam Narrative: GENERAL: Elderly, well-nourished, non-toxic, in no acute distress. Confused, completely naked in bed HEAD: Normocephalic, atraumatic. NECK: Supple. No adenopathy, no masses. RESPIRATORY: Airway patent, respirations nonlabored. CARDIOVASCULAR: Regular rate regular rhythm without murmurs, rubs, or gallops. Peripheral pulses 2+ and equal bilaterally. ABDOMINAL: Soft, nontender, nondistended, no hepatosplenomegaly. Normoactive BS. MUSCULOSKELETAL: Moves all extremities. Strength/ROM intact without gross deformities. SKIN: Warm, dry, normal color. No rashes. NEURO: A&O X2, awake and conversant however confused moving all extremities. PSYCHIATRIC: Confused Objective Data Vital Signs Vital Signs: Vital Signs - 24 hr 08/26/23 09:43 08/26/23 12:00 08/26/23 14:00 Temperature 98.7 F Pulse Rate 78 91 Respiratory Rate 18 16 Blood Pressure 132/76 Pulse Oximetry 98 97 Oxygen Delivery Room Air 08/26/23 16:04 08/26/23 19:47 08/26/23 20:00 Temperature 98.1 F Pulse Rate 97 80 Respiratory Rate 2
[2023-08-27] MEDS: DOXYCYCLINE HYCLATE 100 MG TABLET PO ×2 (09:58→21:58)
[2023-08-27] MEDS: PANTOPRAZOLE 40 MG TABLET PO (09:59)
[2023-08-27] MEDS: lisinopriL 20 MG TABLET 40 MG PO (09:59)
[2023-08-27] MEDS: POTASSIUM CHLORIDE 20 MEQ ER TABLET PO (10:00)
[2023-08-27] MEDS: OMEGA 3 POLYUNSAT FATTY ACIDS 1 GM CAP PO (10:00)
[2023-08-27] MEDS: ROSUVASTATIN 10 MG TABLET PO (10:00)
[2023-08-27] MEDS: SODIUM CHLORIDE 1 GM TABLET 2 GM PO ×2 (10:01→16:50)
[2023-08-27] MEDS: POTASSIUM CHLORIDE 20 MEQ PACKET (FOR LIQUID) 40 MEQ PO ×2 (10:01→16:50)
[2023-08-27] MEDS: cefTRIAXone 2 GM/NS 100 ML 2 GM/100 ML BAG IVPB (10:03)
[2023-08-27] MEDS: SODIUM CHLORIDE 0.9% IV 1,000 ML 75 ML IV CONT (10:04)
--- NOTE | 2023-08-27 10:57 | P.NEURO_ITS ---
Neurology EEG Report General Information Date of Study: 08/26/23 TEST Routine EEG DIAGNOSIS Confusion CONDITION OF RECORDING awake, drowsy, asleep EEG NUMBER [id number] CLINICAL HISTORY Patient presented due to generalized weakness and altered mental status in the setting of COVID-19 infection EEG DESCRIPTION During the awake state with eyes closed the background consists of 9 Hz posterior dominant rhythm which attenuates appropriately with eye opening. The recording is continuous. There is a well developed anterior-posterior gradient. No significant asymmetries of background activities are noted. With drowsiness there is waxing and waning of the dominant rhythm with eventual replacement by a mixture of beta, alpha, and theta activity. As the patient enters stage II sleep, symmetrical spindles and K-complexes are present. Arousal is unr emarkable. There are no epileptiform discharges or seizures during this recording. Hyperventilation and photic stimulation were not performed. IMPRESSION This is a normal routine EEG recorded in awake and asleep states. There are no electrographic seizures identified, nor are there any epileptiform discharges. Please note that a normal EEG cannot exclude a seizure disorder. Clinical correlation is recommended.
[2023-08-27 12:49] LABS: Magnesium 1.7 mg/dL (1.6-2.3); Potassium 3.8 mmol/L (3.4-5.0)
[2023-08-28] VITALS (10 sets, daily range): BP systolic 150–165; BP diastolic 73–78; PULSE 63–82; RESP 16; TEMP 36.5–36.9; O2SAT 97–98
[2023-08-28] MEDS: SODIUM CHLORIDE 0.9% IV 1,000 ML 75 ML IV CONT ×2 (00:18→18:13)
[2023-08-28 05:50] LABS: Anion Gap 9 mmol/L (8-16); Blood Urea Nitrogen 8 mg/dL (9-20); Calcium 8.4 mg/dL (8.4-10.2); Carbon Dioxide 24 mmol/L (22-30); Chloride 101 mmol/L (98-107); Estimated CRCL calculation 128 ml/min; Estimated Glomerular Filt Rate > 60; Glucose 107 mg/dL (65-110); Potassium 3.3 mmol/L (3.4-5.0); Sodium 134 mmol/L (137-145)
[2023-08-28 05:59] LABS: Basophils Percent Auto 0.2 % (0.2-1.2); Eosinophils Absolute Auto 0.1 K/mm3 (0-0.3); Eosinophils Percent Auto 1.8 % (0-4.4); Hematocrit 43.4 % (42.0-52.0); Hemoglobin 15.6 g/dL (14.0-18.0); Immature Granulocyte Absolute 0.03 K/mm3 (0.00-0.031); Immature Granulocyte Percent A 0.7 % (0-0.5); Immature Platelet Fraction Pct 3.8 % (0.9-11.2); Lymphocytes Absolute Auto 1.19 K/mm3 (0.9-3.2); Mean Corpuscular HGB Conc 35.9 g/dl (32-36); Mean Corpuscular Hemoglobin 30.6 pg (26-34); Mean Corpuscular Volume 85.1 fl (80-100); Mean Platelet Volume 10.1 fl (7.4-10.4); Monocytes Absolute Auto 0.6 K/mm3 (0.1-0.6); Monocytes Percent Auto 12.5 % (2.6-8.5); Neutrophils Absolute Auto 2.6 K/mm3 (1.3-6.7); Neutrophils Percent Auto 57.8 % (45.5-73.1); Platelet Count Result 136 k/mm3 (150-375); Red Cell Distribution Width 11.9 % (11.5-14.5); White Blood Count 4.4 K/mm3 (4.5-10.0)
--- NOTE | 2023-08-28 07:53 | PM.DS ---
DS: Admitting Diagnosis Discharge Date today Admitting Diagnosis (1) Essential (primary) hypertension: ?Code(s): I10 - Essential (primary) hypertension ?Status:?Acute (2) Gastro-esophageal reflux disease without esophagitis: ?Code(s): K21.9 - Gastro-esophageal reflux disease without esophagitis ?Status:?Acute (3) Mixed hyperlipidemia: ?Code(s): E78.2 - Mixed hyperlipidemia ?Status:?Acute (4) Type 2 diabetes mellitus without complications: ?Qualifiers: ?Diabetes mellitus assistant terminal manager insulin use:?without assistant terminal manager use? Qualified Code(s):?E11.9 - Type 2 diabetes mellitus without complications ?Code(s): E11.9 - Type 2 diabetes mellitus without complications ?Status:?Acute (5) Vascular dementia: ?Code(s): F01.50 - Vascular dementia, unspecified severity, without behavioral disturbance, psychotic disturbance, mood disturbance, and anxiety ?Status:?Acute (6) COVID-19: ?Code(s): U07.1 - COVID-19 ?Status:?Acute (7) Generalized weakness: ?Code(s): R53.1 - Weakness ?Status:?Acute (8) Unable to ambulate: ?Code(s): R26.2 - Difficulty in walking, not elsewhere classified ?Status:?Acute (9) Acute confusion: ?Code(s): R41.0 - Disorientation, unspecified ?Status:?Acute DS: Discharge Diagnosis Discharge Diagnosis (1) Essential (primary) hypertension: Code(s): I10 - Essential (primary) hypertension Status: Acute (2) Gastro-esophageal reflux disease without esophagitis: Code(s): K21.9 - Gastro-esophageal reflux disease without esophagitis Status: Acute (3) Mixed hyperlipidemia: Code(s): E78.2 - Mixed hyperlipidemia Status: Acute (4) Type 2 diabetes mellitus without complications: Qualifiers: Diabetes mellitus residential insulin use: without assistant terminal manager use Qualified Code(s): E11.9 - Type 2 diabetes mellitus without complications Code(s): E11.9 - Type 2 diabetes mellitus without complications Status: Acute (5) Vascular dementia: Code(s): F01.50 - Vascular dementia, unspecified severity, without behavioral disturbance, psychotic disturbance, mood disturbance, and anxiety Status: Acute (6) COVID-19: Code(s): U07.1 - COVID-19 Status: Acute (7) Generalized weakness: Code(s): R53.1 - Weakness Status: Acute (8) Unable to ambulate: Code(s): R26.2 - Difficulty in walking, not elsewhere classified Status: Acute (9) Acute confusion: Code(s): R41.0 - Disorientation, unspecified Status: Acute DS: Summary Hospital Course Hospital Course: Per H&P, this is a 6-year-old male with past medical history of vascular dementia presented with weakness.? Patient is confused and naked on his bed.? He denies any new complaints no shortness of breath chest pain nausea vomiting cough.? He recently traveled this family for medical record the has been reported to be increasingly confused will recently.? Needed a wheelchair to get him through the airport which is not normal for him.? Patient went to run an errand but became increasingly confused while driving home.? EMS was then called.? He has past medical history of hypertension GERD hyperlipidemia type 2 diabetes and vascular dementia.? admitted in the setting for further evaluation The following medical issues have been addressed during hospitalization Acute metabolic encephalopathy and general weakness Patient is a 69-year-old male presents to the ED with generalized weakness increasing confusion. Patient also had urinated on himself. Laboratory workup fairly unremarkable mildly low potassium urine with 2+ ketones on blood with no evidence of infection. IV fluids started. EKG without ischemic changes. Troponin negative. BNP is 411. CT brain with no abnormality. cOVID test came back positive which is likely the etiology. brain MRI: 1. No acute intracranial process. 2. Moderate d
[2023-08-28] MEDS: cefTRIAXone 2 GM/NS 100 ML 2 GM/100 ML BAG IVPB (08:29)
[2023-08-28] MEDS: lisinopriL 20 MG TABLET 40 MG PO (08:30)
[2023-08-28] MEDS: ROSUVASTATIN 10 MG TABLET PO (08:30)
[2023-08-28] MEDS: OMEGA 3 POLYUNSAT FATTY ACIDS 1 GM CAP PO (08:30)
[2023-08-28] MEDS: SODIUM CHLORIDE 1 GM TABLET 2 GM PO ×2 (08:30→18:13)
[2023-08-28] MEDS: POTASSIUM CHLORIDE 20 MEQ PACKET (FOR LIQUID) 40 MEQ PO ×3 (08:30→18:13)
[2023-08-28] MEDS: PANTOPRAZOLE 40 MG TABLET PO (08:30)
[2023-08-28] MEDS: DOXYCYCLINE HYCLATE 100 MG TABLET PO ×2 (08:30→21:19)
--- NOTE | 2023-08-28 09:03 | PM.IMPN ---
Progress Note: A&P Assessment and Plan (1) Essential (primary) hypertension: Code(s): I10 - Essential (primary) hypertension Status: Acute (2) Gastro-esophageal reflux disease without esophagitis: Code(s): K21.9 - Gastro-esophageal reflux disease without esophagitis Status: Acute (3) Mixed hyperlipidemia: Code(s): E78.2 - Mixed hyperlipidemia Status: Acute (4) Type 2 diabetes mellitus without complications: Qualifiers: Diabetes mellitus [facility] insulin use: without [facility] use Qualified Code(s): E11.9 - Type 2 diabetes mellitus without complications Code(s): E11.9 - Type 2 diabetes mellitus without complications Status: Acute (5) Vascular dementia: Code(s): F01.50 - Vascular dementia, unspecified severity, without behavioral disturbance, psychotic disturbance, mood disturbance, and anxiety Status: Acute (6) COVID-19: Code(s): U07.1 - COVID-19 Status: Acute (7) Generalized weakness: Code(s): R53.1 - Weakness Status: Acute (8) Unable to ambulate: Code(s): R26.2 - Difficulty in walking, not elsewhere classified Status: Acute (9) Acute confusion: Code(s): R41.0 - Disorientation, unspecified Status: Acute Plan Acute metabolic encephalopathy and general weakness Patient is a 69-year-old male presents to the ED with generalized weakness increasing confusion. Patient also had urinated on himself. Laboratory workup fairly unremarkable mildly low potassium urine with 2+ ketones on blood with no evidence of infection. IV fluids started. EKG without ischemic changes. Troponin negative. BNP is 411. CT brain with no abnormality. cOVID test came back positive which is likely the etiology. brain MRI: 1. No acute intracranial process. 2. Moderate diffuse volume loss and moderate scattered white matter T2 hyperintensity which is within normal limits for age and likely sequela of chronic small vessel ischemic disease. Neurology consult. Appreciate recommendation COVID pneumonia and possible superimposed bacterial pneumonia Chest x-ray with possible infection versus edema. not on O2 Patient has leukopenia and fever since admission Lactic acid normal procalcitonin 0.1, Started doxycycline p.o. and ceftriaxone IV, finished remdesivir a 5 days course Follow-up blood culture, no growth so far No fever over the night Patient has leukopenia since admission, likely secondary to viral infection. White blood cell is trending up, today white blood cell 4400 Hyponatremia, hypokalemia Sodium 131, potassium 2.8 08/27 Repeated with potassium chloride 40 mg b.i.d. p.o. and sodium chloride po Sodium 134, potassium 3.3 today. Will give potassium chloride 40 mEq p.o. once before discharge Patient needs see primary care doctor in 1 week for follow-up hypertension continue lisinopril hydrochlorothiazide on hold. Subjective Date/time seen: 08/28/23 09:03 Interval history: I saw and examined patient today. Patient is feeling better, denies chest pain, short of breath, abdomen pain, nausea vomiting diarrhea. Labs reviewed, white blood cell of 4400 today, afebrile, blood pressure stable Exam Narrative: GENERAL: Elderly, well-nourished, non-toxic, in no acute distress. Confused, completely naked in bed HEAD: Normocephalic, atraumatic. NECK: Supple. No adenopathy, no masses. RESPIRATORY: Airway patent, respirations nonlabored. CARDIOVASCULAR: Regular rate regular rhythm without murmurs, rubs, or gallops. Peripheral pulses 2+ and equal bilaterally. ABDOMINAL: Soft, nontender, nondistended, no hepatosplenomegaly. Normoactive BS. MUSCULOSKELETAL: Moves all extremities. Strength/ROM intact without gross deformities. SKIN: Warm, dry, normal color. No rashes. NEURO: A&O X2, awake and conversant however confused moving all extremities. PSYCHIATRIC: Not confused Objective Data Vital Signs Vital Signs:
--- NOTE | 2023-08-28 15:00 | PC.NURSE ---
Patient family came to me with concerns about patient discharging and his safety at home. Daughter and spoke with me outside of patient door and expressed concerns that they were not given enough of a heads up for his discharge, that the patient cannot get around well enough to go home, and that they are not getting enough information. I explained to them that the patient's lab results have improved, patient has been doing well with therapy and has been walking well with a walker, and that patient has home health set up to see him after his quarantine is up. I then asked Dr. Landeros to come speak with family. Provider came to see patient and then asked me to have Care Coordination speak with family, listen to their concerns, and offer support options. OT practiced stairs with patient and his family, CC spoke with family as well. Family would like patient to stay until tomorrow so that they have enough time to get walker and other support items for patient. Provider made aware, discharge order cancelled
[2023-08-29] VITALS: PULSE 74
[2023-08-29 04:00] VITALS: PULSE 72
[2023-08-29 06:00] VITALS: BP 172/91; PULSE 82; RESP 16; TEMP 36.9; O2SAT 99
[2023-08-29] MEDS: lisinopriL 20 MG TABLET 40 MG PO (07:02)
[2023-08-29] MEDS: SODIUM CHLORIDE 0.9% IV 1,000 ML 75 ML IV CONT ×2 (07:36→07:42)
[2023-08-29] MEDS: POTASSIUM CHLORIDE 20 MEQ PACKET (FOR LIQUID) 40 MEQ PO (07:39)
[2023-08-29] MEDS: ROSUVASTATIN 10 MG TABLET PO (07:39)
[2023-08-29] MEDS: OMEGA 3 POLYUNSAT FATTY ACIDS 1 GM CAP PO (07:39)
[2023-08-29] MEDS: PANTOPRAZOLE 40 MG TABLET PO (07:39)
[2023-08-29] MEDS: SODIUM CHLORIDE 1 GM TABLET 2 GM PO (07:39)
[2023-08-29] MEDS: DOXYCYCLINE HYCLATE 100 MG TABLET PO (07:39)
[2023-08-29] MEDS: cefTRIAXone 2 GM/NS 100 ML 2 GM/100 ML BAG IVPB (07:41)
[2023-08-29 08:00] VITALS: PULSE 89; O2SAT 99
--- NOTE | 2023-08-29 17:04 | PM.DS ---
DS: Admitting Diagnosis Discharge Date 08/29/23 Admitting Diagnosis (1) Essential (primary) hypertension: ?Code(s): I10 - Essential (primary) hypertension ?Status:?Acute (2) Gastro-esophageal reflux disease without esophagitis: ?Code(s): K21.9 - Gastro-esophageal reflux disease without esophagitis ?Status:?Acute (3) Mixed hyperlipidemia: ?Code(s): E78.2 - Mixed hyperlipidemia ?Status:?Acute (4) Type 2 diabetes mellitus without complications: ?Qualifiers: ?Diabetes mellitus mcc insulin use:?without mcc use? Qualified Code(s):?E11.9 - Type 2 diabetes mellitus without complications ?Code(s): E11.9 - Type 2 diabetes mellitus without complications ?Status:?Acute (5) Vascular dementia: ?Code(s): F01.50 - Vascular dementia, unspecified severity, without behavioral disturbance, psychotic disturbance, mood disturbance, and anxiety ?Status:?Acute (6) COVID-19: ?Code(s): U07.1 - COVID-19 ?Status:?Acute (7) Generalized weakness: ?Code(s): R53.1 - Weakness ?Status:?Acute (8) Unable to ambulate: ?Code(s): R26.2 - Difficulty in walking, not elsewhere classified ?Status:?Acute (9) Acute confusion: ?Code(s): R41.0 - Disorientation, unspecified ?Status:?Acute DS: Discharge Diagnosis Discharge Diagnosis (1) Essential (primary) hypertension: Code(s): I10 - Essential (primary) hypertension Status: Acute (2) Gastro-esophageal reflux disease without esophagitis: Code(s): K21.9 - Gastro-esophageal reflux disease without esophagitis Status: Acute (3) Mixed hyperlipidemia: Code(s): E78.2 - Mixed hyperlipidemia Status: Acute (4) Type 2 diabetes mellitus without complications: 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 Qualified Code(s): E11.9 - Type 2 diabetes mellitus without complications Code(s): E11.9 - Type 2 diabetes mellitus without complications Status: Acute (5) Vascular dementia: Code(s): F01.50 - Vascular dementia, unspecified severity, without behavioral disturbance, psychotic disturbance, mood disturbance, and anxiety Status: Acute (6) COVID-19: Code(s): U07.1 - COVID-19 Status: Acute (7) Generalized weakness: Code(s): R53.1 - Weakness Status: Acute (8) Unable to ambulate: Code(s): R26.2 - Difficulty in walking, not elsewhere classified Status: Acute (9) Acute confusion: Code(s): R41.0 - Disorientation, unspecified Status: Acute DS: Summary Hospital Course Hospital Course: Per H&P, this is a 6-year-old male with past medical history of vascular dementia presented with weakness.? Patient is confused and naked on his bed.? He denies any new complaints no shortness of breath chest pain nausea vomiting cough.? He recently traveled this family for medical record the has been reported to be increasingly confused will recently.? Needed a wheelchair to get him through the airport which is not normal for him.? Patient went to run an errand but became increasingly confused while driving home.? EMS was then called.? He has past medical history of hypertension GERD hyperlipidemia type 2 diabetes and vascular dementia.? admitted in the setting for further evaluation The following medical issues have been addressed during hospitalization Acute metabolic encephalopathy and general weakness Patient is a 69-year-old male presents to the ED with generalized weakness increasing confusion.? Patient also had urinated on himself.? Laboratory workup fairly unremarkable mildly low potassium urine with 2+ ketones on blood with no evidence of infection.? IV fluids started.? EKG without ischemic changes.? Troponin negative. BNP is 411.? CT brain with no abnormality.? ?cOVID test came back positive which is likely the etiology. ?brain MRI:?1. No acute intracranial process. 2. Moderate
== END 2023-08-29 11:53 | disposition home health service (06) | DRG 177 ==
LOC: ANHED 21:02 → ANH2MED 23:43
PROVIDERS: Emergency Medicine; Internal Medicine; Admitting Provider Internal Medicine; Emergency Provider Physician Assistant; PCP Family Medicine; Visit Provider Hospitalist
DX: U07.1 COVID-19 (principal); J12.82 Pneumonia due to coronavirus disease 2019; G93.41 Metabolic encephalopathy; J15.9 Unspecified bacterial pneumonia; E87.1 Hypo-osmolality and hyponatremia; Z23 Encounter for immunization; E78.2 Mixed hyperlipidemia; K21.9 Gastro-esophageal reflux disease without esophagitis; R26.2 Difficulty in walking, not elsewhere classified; I10 Essential (primary) hypertension; F01.50 Vascular dementia, unspecified severity, without behavioral disturbance, psychotic disturbance, mood disturbance, and anxiety; E87.6 Hypokalemia; E11.9 Type 2 diabetes mellitus without complications; Z87.891 Personal history of nicotine dependence
CPT/HCPCS: 36415; 70450; 70551; 71046; 80048; 80053; 81001; 82550; 82728; 82948; 83605; 83735; 83880; 84132; 84145; 84484; 85025; 85027; 85055; 85380; 86140; 87040; 87636; 90471; 90694; 93005; 95816; 96360; 96361; 96365; 97110; 97161; 97166; 97530; 99285; A9270; G0008; G0378; J0696; J7030

== ENCOUNTER 2023-10-08 14:52 | Outpatient (CLI) | payer MEDICARE, SELFPAY ==
[2023-10-08 18:54] LABS: Anion Gap 11 mmol/L (8-16); Blood Urea Nitrogen 13 mg/dL (9-20); Calcium 9.3 mg/dL (8.4-10.2); Carbon Dioxide 29 mmol/L (22-30); Chloride 98 mmol/L (98-107); Estimated Glomerular Filt Rate > 60; Glucose 101 mg/dL (65-110); Potassium 3.3 mmol/L (3.4-5.0); Sodium 138 mmol/L (137-145)
== END 2023-10-08 14:53 | disposition home or self-care (01) ==
LOC: ANHGOSHLAB 14:53
PROVIDERS: PCP Family Medicine; Visit Provider Family Medicine
DX: E87.6 Hypokalemia (principal)
CPT/HCPCS: 36415; 80048

== ENCOUNTER 2024-05-11 15:56 | Outpatient (CLI) | payer MEDICARE, SELFPAY ==
[2024-05-11 18:45] LABS: Basophils Absolute Auto 0.1 K/mm3 (0.0-0.1); Basophils Percent Auto 0.7 % (0.2-1.2); Eosinophils Absolute Auto 0.4 K/mm3 (0-0.3); Eosinophils Percent Auto 5.1 % (0-4.4); Hematocrit 44.5 % (42.0-52.0); Hemoglobin 15.5 g/dL (14.0-18.0); Immature Granulocyte Absolute 0.02 K/mm3 (0.00-0.031); Immature Granulocyte Percent A 0.3 % (0-0.5); Lymphocytes Absolute Auto 1.75 K/mm3 (0.9-3.2); Mean Corpuscular HGB Conc 34.8 g/dl (32-36); Mean Corpuscular Hemoglobin 30.9 pg (26-34); Mean Corpuscular Volume 88.6 fl (80-100); Mean Platelet Volume 10.5 fl (7.4-10.4); Monocytes Absolute Auto 0.6 K/mm3 (0.1-0.6); Neutrophils Absolute Auto 4.2 K/mm3 (1.3-6.7); Neutrophils Percent Auto 59.9 % (45.5-73.1); Platelet Count Result 200 k/mm3 (150-375); Red Blood Count 5.02 M/mm3 (4.6-6.20); Red Cell Distribution Width 12.4 % (11.5-14.5)
[2024-05-11 19:27] LABS: Alanine Aminotransferase 16 U/L (6-50); Albumin Level 4.5 g/dL (3.5-5.1); Alkaline Phosphatase 94 U/L (38-126); Anion Gap 8 mmol/L (4-12); Aspartate Amino Transferase 21 U/L (17-59); Bilirubin,Total 0.8 mg/dL (0.2-1.3); Blood Urea Nitrogen 15 mg/dL (9-20); Calcium 9.2 mg/dL (8.4-10.2); Carbon Dioxide 27 mmol/L (22-30); Chloride 104 mmol/L (98-107); Estimated Glomerular Filt Rate > 60; Glucose 159 mg/dL (65-110); Potassium 3.7 mmol/L (3.4-5.0); Sodium 139 mmol/L (137-145)
[2024-05-11 20:16] LABS: Folic Acid 8.2 ng/mL (2.76->20)
== END 2024-05-11 15:57 | disposition home or self-care (01) ==
LOC: ANHGOSHLAB 15:57
PROVIDERS: PCP Family Medicine; Visit Provider Family Medicine
DX: E53.8 Deficiency of other specified B group vitamins (principal); R53.83 Other fatigue; Z13.228 Encounter for screening for other metabolic disorders
CPT/HCPCS: 36415; 80053; 82607; 82746; 85025